=== PATIENT | female | born 1970 | race Native Hawaiian/Other Pacific Islander ===

== ENCOUNTER 2018-03-12 13:06 | Emergency (ER) | payer OTHER ==
[~2018-03-12] VITALS: Ht 167.6 cm; Wt 72.6 kg
[2018-03-12 13:15] VITALS: BP 129/85; TEMP 98.7
[2018-03-12] MEDS ORDERED: OXYCONTIN30 MG PO (13:21)
== END 2018-03-12 14:25 | disposition home or self-care (01) ==
LOC: ED 13:06
DX: R05 Cough (principal)
CPT/HCPCS: 99281

== ENCOUNTER 2018-04-09 10:07 | Outpatient (CLI) | payer OTHER ==
[~2018-04-09 10:07] MED LIST: OXYCONTIN30 MG PO
[2018-04-09 11:56] LABS: POTASSIUM 4.1 mmol/L (3.6-5.2)
[2018-04-09 12:12] LABS: PLATELET COUNT 289 K/uL (152-353)
== END 2018-04-09 22:37 | disposition home or self-care (01) ==
LOC: LABW 10:07
PROVIDERS: Emergency Medicine
DX: M54.89 Other dorsalgia (principal); I10 Essential (primary) hypertension; G47.09 Other insomnia; M47.896 Other spondylosis, lumbar region; R05 Cough
CPT/HCPCS: 36415; 80053; 80061; 84436; 84443; 84479; 85027

== ENCOUNTER 2019-11-08 08:17 | Emergency (ER) | payer OTHER ==
[~2019-11-08] VITALS: Ht 167.6 cm; Wt 72.6 kg
[2019-11-08 08:37] VITALS: BP 137/65; TEMP 98.8
[2019-11-08 09:32] LABS: PLATELET COUNT 429 K/uL (152-353)
[2019-11-08 09:46] LABS: POTASSIUM 3.8 mmol/L (3.6-5.2)
== END 2019-11-08 11:57 | disposition home or self-care (01) ==
LOC: ED 08:17
PROVIDERS: Family Medicine
DX: M54.89 Other dorsalgia (principal); R25.2 Cramp and spasm
CPT/HCPCS: 80053; 85027; 96372; 99283; J1885

== ENCOUNTER 2019-11-16 11:36 | Outpatient (CLI) | payer OTHER | END 2019-11-16 11:45 | disposition short-term general hospital (02) | LOC: AMB 11:36 | DX: M54.89 Other dorsalgia (principal); M79.605 Pain in left leg; M79.604 Pain in right leg | CPT/HCPCS: A0425; A0427 ==

== ENCOUNTER 2019-11-16 11:46 | Emergency (ER) | payer OTHER ==
[~2019-11-16] VITALS: Ht 167.6 cm; Wt 74.8 kg
[2019-11-16 14:10] VITALS: BP 135/76; TEMP 97.9
== END 2019-11-16 14:10 | disposition home or self-care (01) ==
LOC: ED 11:46
DX: S33.5XXA Sprain of ligaments of lumbar spine, initial encounter (principal); M54.5 Low back pain
CPT/HCPCS: 96372; 99282; 99283; J1885

== ENCOUNTER 2019-11-17 09:19 | Outpatient (CLI) | payer OTHER | END 2019-11-17 19:46 | disposition home or self-care (01) | LOC: MRI 09:19 | DX: M54.5 Low back pain (principal); M51.36 Other intervertebral disc degeneration, lumbar region; M54.16 Radiculopathy, lumbar region; M46.86 Other specified inflammatory spondylopathies, lumbar region | CPT/HCPCS: A9576 ==

== ENCOUNTER 2019-12-01 14:21 | Outpatient (CLI) | payer OTHER ==
[2019-12-01 14:37] LABS: PLATELET COUNT 383 K/uL (152-353)
== END 2019-12-01 19:11 | disposition home or self-care (01) ==
LOC: LAB 14:21
PROVIDERS: Internal Medicine Infectious Disease
DX: G06.2 Extradural and subdural abscess, unspecified (principal); M46.46 Discitis, unspecified, lumbar region; M46.26 Osteomyelitis of vertebra, lumbar region
CPT/HCPCS: 80048; 80202; 85027

== ENCOUNTER 2022-06-23 08:15 | Observation (INO) | payer OTHER ==
[~2022-06-23] VITALS: Ht 167.6 cm; Wt 66.9 kg
[2022-06-23] VITALS (12 sets, daily range): BP systolic 107–168; BP diastolic 49–94; TEMP 97.9–99.8; Ht 167.6 cm; Wt 66.9 kg
[2022-06-23 09:01] LABS: PLATELET COUNT 495 K/uL (152-353)
[2022-06-23 09:03] LABS: POTASSIUM 3.9 mmol/L (3.6-5.2)
[2022-06-24] VITALS: BP 152/78; TEMP 99.2
[2022-06-24 04:00] VITALS: BP 106/68; TEMP 98.6
[2022-06-24 05:15] LABS: PLATELET COUNT 353 K/uL (152-353)
[2022-06-24 05:24] LABS: POTASSIUM 3.5 mmol/L (3.6-5.2)
[2022-06-24 08:00] VITALS: BP 119/57; TEMP 98.4
[2022-06-24 12:00] VITALS: BP 133/57; TEMP 98.5
[2022-06-24 14:00] VITALS: BP 129/69; TEMP 99.2
[2022-06-24 20:00] VITALS: BP 138/71; TEMP 98.9
[2022-06-25] VITALS: BP 152/24; TEMP 98.6
[2022-06-25 04:00] VITALS: BP 137/68; TEMP 98.7
[2022-06-25 08:00] VITALS: BP 141/72; TEMP 98.8
[2022-06-25] MEDS ORDERED: FLUOXETINE20 MG PO (09:51)
[2022-06-25] MEDS ORDERED: NORVASC 5MG TAB PO (09:51)
[2022-06-25] MEDS ORDERED: OXYCODONE30 MG PO (09:53)
== END 2022-06-25 11:05 | disposition home or self-care (01) ==
LOC: ED 08:21 → MED/SURG 12:09
PROVIDERS: Family Medicine; ADMIT Internal Medicine; ATTEND Internal Medicine
DX: K52.89 Other specified noninfective gastroenteritis and colitis (principal); N39.0 Urinary tract infection, site not specified; G89.29 Other chronic pain; I10 Essential (primary) hypertension; A41.89 Other specified sepsis
CPT/HCPCS: 36415; 80048; 80053; 81000; 81025; 82150; 83690; 85027; 87088; 87635; 96360; 96365; 96375; 96376; 99220; 99284; G0378; J0696; J1885; J2270; J2405; J2543; U0003

== ENCOUNTER 2023-01-16 13:24 | Outpatient (CLI) | payer BC, OTHER ==
[~2023-01-16 13:24] MED LIST changes: +FLUOXETINE20 MG PO; +NORVASC 5MG TAB PO; +OXYCODONE30 MG PO
== END 2023-01-16 18:57 | disposition home or self-care (01) ==
LOC: RAD 13:24
PROVIDERS: ATTEND Family Medicine
DX: M96.1 Postlaminectomy syndrome, not elsewhere classified (principal)